=== PATIENT | female | born 1935 | race Caucasian/White ===

== ENCOUNTER → 2016-03-08 | Outpatient (CLI) | payer MEDICARE ==
[2015-07-12 09:11] VITALS: BP 146/65
[~2016-03-08] MED LIST: ASPI81TA2 PO; HYDR25TA9 PO; IBUP-1007 PO; LISI1TAB3 PO; LISI40TA PO; MELA5TAB PO; METO25TA2 PO; METO25TA4 PO; METO50TA2 PO; MULT-658 PO
--- NOTE | 2016-03-08 14:27 | KCIC ---
Left breast digital diagnostic mammograms with CAD: HISTORY Followup nodule after biopsy. COMPARISON Comparison is made to previous studies dated 07/12/2015 and 06/07/2015. FINDINGS Breast density category B. The skin and nipple show no abnormalities. No abnormal lymph nodes are seen in the axilla. The breast parenchyma shows scattered fibroglandular density. The nodular density seen previously at the 7 o'clock B position is no longer identified but a biopsy clip is present. There are no new dominant masses, suspicious calcifications or architectural distortions. IMPRESSION No evidence of malignancy. Recommend routine annual mammographic screening. This study was interpreted with the benefit of Computerized Aided Detection (CAD). Mammography is not 100% sensitive in detecting breast cancer. Therefore, a self breast exam and a clinical breast exam are very important. A negative mammogram does not negate a clinically suspicious finding and should not result in a delay in biopsying a clinically suspicious abnormality. BI-RADS category 1. Negative. This patient's information has been entered into a reminder system for the patient to be notified with the results of this examination and a target date for her next mammograms. Electronically signed by: Felicia Santos MD (Mar 08, 2016 14:26:00)
== END | disposition home or self-care (01) ==
LOC: KCIC MAMMO 12:41
PROVIDERS: ATTEND Surgery
DX: N63 Unspecified lump in breast (principal)
CPT/HCPCS: G0206; 77065

== ENCOUNTER → 2016-04-17 | Outpatient (CLI) | payer MEDICARE ==
[2015-07-12 09:11] VITALS: BP 146/65
--- NOTE | 2016-04-17 14:53 | KCIC ---
Two-view chest. Indication:Reason For StudyReason: HYPERTENSION, PRE OP FOR HIP REPLACEMENT / Spl. Instructions: / History: FINDINGS: Heart size is normal. Pulmonary vasculature is within normal limits. No pleural effusion or consolidating infiltrate. No pneumothorax. The mediastinal contours are within normal limits. Old rib fractures are noted on the left. IMPRESSION: No evidence for heart failure or pneumonia. Electronically signed by: Giovany Barker (Apr 17, 2016 14:52:28)
== END | disposition home or self-care (01) ==
LOC: KCIC 14:26
PROVIDERS: ATTEND Internal Medicine
DX: Z98.890 Other specified postprocedural states (principal); I10 Essential (primary) hypertension
CPT/HCPCS: 71020

== ENCOUNTER → 2016-05-20 | Outpatient (CLI) | payer MEDICARE ==
[2015-07-12 09:11] VITALS: BP 146/65
[2016-05-20 12:13] LABS: HEMOGLOBIN 10.1 g/dL (12.0-15.5)
== END | disposition home or self-care (01) ==
LOC: SPEC 11:55
PROVIDERS: ATTEND Orthopaedic Surgery
DX: Z47.1 Aftercare following joint replacement surgery (principal)
CPT/HCPCS: 36415; 85014; 85018

== ENCOUNTER → 2017-02-12 | Outpatient (CLI) | payer MEDICARE ==
[2015-07-12 09:11] VITALS: BP 146/65
[~2017-02-12] MED LIST changes: +ASPI-630 PO; -ASPI81TA2 PO; -METO50TA2 PO; +METO50TA6 PO
--- NOTE | 2017-02-12 16:34 | RAD ---
Right leg venous Doppler study: Clinical indications: Right leg swelling and pain. Findings: Duplex sonography (including giraldo scale evaluation and color flow and waveform spectral analysis) of the proximal aspect of the greater saphenous vein and proximal aspect of the profunda femoral vein and the entire length of the common femoral and superficial femoral and popliteal veins and the tibioperoneal trunk and the proximal aspect of the posterior tibial and peroneal veins of the right leg was performed. Normal compressibility, augmentation of color Doppler flow after calf compression, and respiratory variation of Doppler flow is seen. Thus, there are no sonographic findings of deep venous thrombosis within these veins. Impression: There are no sonographic findings of deep venous thrombosis within the veins discussed above of the right lower extremity.
== END | disposition home or self-care (01) ==
LOC: US 14:57
PROVIDERS: ATTEND Internal Medicine
DX: M79.604 Pain in right leg (principal); M79.89 Other specified soft tissue disorders
CPT/HCPCS: 93971

== ENCOUNTER → 2017-04-17 | Outpatient (CLI) | payer MEDICARE | END | disposition home or self-care (01) | LOC: KCIC MAMMO 10:53 | DX: Z12.31 Encounter for screening mammogram for malignant neoplasm of breast (principal) | CPT/HCPCS: 77063; 77067 ==

== ENCOUNTER → 2018-05-04 | Outpatient (CLI) | payer MEDICARE ==
[2015-07-12 09:11] VITALS: BP 146/65
[~2018-05-04] MED LIST changes: +HYDR-2145 PO; -HYDR25TA9 PO; +LISI-130 PO; -LISI40TA PO
--- NOTE | 2018-05-04 14:30 | KCIC ---
Bilateral digital screening mammograms with 3-D tomosynthesis: Reason for examination: Routine screening. Comparison is made to previous studies dated 03/08/2016 and 06/07/2015. Bilateral mammograms in CC and oblique projections were obtained with 2-D imaging and 3-D tomosynthesis imaging on a Siemens Inspiration unit and reviewed on the workstation. Interpretation was made with the benefit of CAD. The skin and nipples show no abnormalities. No abnormal axillary lymph nodes are seen. The breast parenchyma shows scattered fatty and fibroglandular density. (Breast density: Category B.) There are no dominant masses, suspicious calcifications or architectural distortion. Biopsy clip remains present on the left. Impression: No evidence of malignancy. Recommend routine screening. BI-RAD Category 1: Negative. "Our facility is accredited by the [employer] Mammography [employer]." This patient's information has been entered into a reminder system for the patient to be notified with the results of her examination and a target date for the next mammogram. Electronically signed by: Ivy Santos MD (05/04/2018 2:27 PM) [id number]
== END | disposition home or self-care (01) ==
LOC: KCIC MAMMO 10:01
PROVIDERS: ATTEND Internal Medicine
DX: Z12.31 Encounter for screening mammogram for malignant neoplasm of breast (principal)
CPT/HCPCS: 77063; 77067

== ENCOUNTER → 2020-06-28 | Outpatient (CLI) | payer MEDICARE ==
[2015-07-12 09:11] VITALS: BP 146/65
[~2020-06-28] MED LIST changes: +LISI1TAB23 PO; -LISI1TAB3 PO
--- NOTE | 2020-06-28 10:53 | KCIC ---
Bilateral digital screening mammograms with 3-D tomosynthesis: Reason for examination: Routine screening. Comparison is made to previous studies dated back to 06/07/2015. Bilateral mammograms in CC and oblique projections were obtained with 2-D imaging and 3-D tomosynthes is imaging on a Siemens Inspiration unit and reviewed on the workstation. Interpretation was made wit h the benefit of CAD. The skin and nipples show no abnormalities. No abnormal axillary lymph nodes are seen. The breast par enchyma shows scattered fatty and fibroglandular density. (Breast density: Category B.) There continu es to be a small nodule consistent with an intramammary lymph node at the 3:00 B position of the left breast which is stable. There are no new dominant masses, suspicious calcifications or architectural distortion. Impression: No evidence of malignancy. Recommend routine screening. BI-RAD Category 2: Benign. "Our facility is accredited by the [employer] Mammography [employer]." This patient's information has been entered into a reminder system for the patient to be notified wit h the results of her examination and a target date for the next mammogram. Electronically signed by: Ivy Santos MD (06/28/2020 10:51 AM) [id number]
== END ==
LOC: KCIC MAMMO 09:49
PROVIDERS: ATTEND Internal Medicine
DX: Z12.31 Encounter for screening mammogram for malignant neoplasm of breast (principal)
CPT/HCPCS: 77063; 77067